=== PATIENT | female | born 1955 | race American Indian/Alaskan Native ===

== ENCOUNTER 2016-10-26 09:35 | Emergency (ER) | payer BC ==
[2016-10-26 09:54] VITALS: BP 137/79
--- NOTE | 2016-10-26 10:30 | Emergency Department Report ---
- General Chief Complaint: Sore Throat Stated Complaint: SORE THROAT /BOTH EYES POSS PINK EYE Time Seen by Provider: 10/26/16 10:03 Source: patient Mode of arrival: Ambulatory Limitations: No Limitations - History of Present Illness MD Complaint: cough, sore throat, nasal congestion, sinus pain, other (eye redness and drainage) -: Gradual (days; pt is a public policy manager) Quality: dull Consistency: constant Improves With: nothing Worsens With: nothing Context: sick contacts Associated Symptoms: headache, rhinorrhea, nasal congestion, sore throat, cough (smoker). denies: denies other symptoms, fever, chills, myalgias, diaphoresis, stiff neck, chest pain, shortness of breath, abdominal pain, nausea, vomiting, diarrhea, dysuria, rash, confusion, right sweats, weight loss, epistaxis, hoarseness, ear pain Treatments Prior to Arrival: none - Related Data Previous Rx's Medication Instructions Recorded Last Taken Type Cefdinir 300 mg PO BID #20 capsule 10/26/16 Unknown Rx Fluticasone [Flonase] 1 spray NS QDAY #1 bottle 10/26/16 Unknown Rx Polymyxin B Sulf/Trimethoprim 2 drop OP QID #1 bottle 10/26/16 Unknown Rx [Polytrim Eye Drops [id number]/0.1%] methylPREDNISolone [Medrol] 4 mg PO DAILY #1 tab.ds.pk 10/26/16 Unknown Rx Allergies Allergy/AdvReac Type Severity Reaction Status Date / Time No Known Allergies Allergy Verified 10/26/16 09:48 ED Review of Systems ROS: Stated complaint: SORE THROAT /BOTH EYES POSS PINK EYE Other details as noted in HPI Comment: All other systems reviewed and negative Constitutional: no symptoms reported, see HPI. denies: chills, diaphoresis, fever, malaise, weakness Eyes: as per HPI, eye discharge. denies: eye pain, vision change ENT: as per HPI, ear pain (full), throat pain, congestion (sinus). denies: dental pain, hearing loss, epistaxis Respiratory: no symptoms reported, see HPI, cough (smoker). denies: orthopnea, shortness of breath, SOB with exertion, SOB at rest, stridor, wheezing Cardiovascular: as per HPI. denies: chest pain, palpitations, dyspnea on exertion, orthopnea Endocrine: no symptoms reported, see HPI. denies: excessive sweating, flushing , intolerance to cold, intolerance to heat Gastrointestinal: as per HPI. denies: abdominal pain, nausea, vomiting Genitourinary: as per HPI. denies: urgency, dysuria ED Past Medical Hx - Past Medical History Hx Arthritis: Yes Additional medical history: cig smoker .5 ppd - Surgical History Additional Surgical History: tubal ligation. hysterectomy - Family History Family history: no significant - Social History Smoking Status: Current Every Day Smoker Substance Use Type: None - Medications Home Medications: Home Medications Medication Instructions Recorded Confirmed Last Taken Type Cefdinir 300 mg PO BID #20 capsule 10/26/16 Unknown Rx Fluticasone [Flonase] 1 spray NS QDAY #1 bottle 10/26/16 Unknown Rx Polymyxin B Sulf/Trimethoprim 2 drop OP QID #1 bottle 10/26/16 Unknown Rx [Polytrim Eye Drops [id number]/0.1%] methylPREDNISolone [Medrol] 4 mg PO DAILY #1 tab.ds.pk 10/26/16 Unknown Rx ED Physical Exam - General Limitations: No Limitations General appearance: alert, in no apparent distress - Head Head exam: Present: atraumatic - Eye Eye exam: Present: normal appearance Pupils: Present: normal accommodation - ENT ENT exam: Present: normal exam, mucous membranes moist - Neck Neck exam: Present: normal inspection. Absent: tenderness, meningismus - Respiratory Respiratory exam: Present: normal lung sounds bilaterally, other (bronchial smokers cough). Absent: respiratory distress, wheezes, rales, rhonchi, stridor , chest wall tenderness, accessory muscle use, decreased breath sounds, prolonged expiratory - Cardiovascular Cardiovascular Exam: Present: regular rate, normal rhythm - GI/Abdominal GI/Abdominal exam: Present: soft - Rectal Rectal exam: Present: deferred - Extremities Exam Extremities exam: Present: normal inspection, full ROM, normal capillary refill. Absent: tenderness, pedal edema, joint swelling, calf tenderness - Back Exam Back exam: Present: normal inspection, full ROM. Absent: tenderness, CVA tenderness (R) - Neurological Exam Neurological exam: Present: alert, altered, oriented X3, CN II-XII intact - Psychiatric Psychiatric exam: Present: normal affect, normal mood. Absent: depressed, agitated - Skin Skin exam: Present: warm, dry, intact, normal color. Absent: rash ED Course Vital Signs 10/26/16 09:51 Temperature 98.4 F Pulse Rate 86 Respiratory 17 Rate Blood Pressure 137/79 O2 Sat by Pulse 100 Oximetry - Reevaluation(s) Reevaluation #1: 10/26/16 10:28 non ill appearing. no fever. non septic appearing female smoker matting of eyes this am w s/s sinus infection/drainage cough non productive- smoker discussed smoking cessation requesting work note ED Medical Decision Making - Medical Decision Making non ill appearing no fever CREDIT ASSISTANT upper resp s/s smoker - Differential Diagnosis upper v lower resp infection Critical care attestation.: If time is entered above; I have spent that time in minutes in the direct care of this critically ill patient, excluding procedure time. ED Disposition Clinical Impression: Upper respiratory infection, Sinusitis, Conjunctivitis, Smoker Disposition: - TO HOME OR SELFCARE Is pt being admited?: No Does the pt Need Aspirin: No Condition: Stable Instructions: How to Stop Smoking (ED), Sinusitis (ED), Conjunctivitis (ED) Additional Instructions: try to eliminate cig smoking meds as ordered good handwashing at work follow up with pcp Prescriptions: Cefdinir 300 mg PO BID #20 capsule Fluticasone [Flonase] 1 spray NS QDAY #1 bottle methylPREDNISolone [Medrol] 4 mg PO DAILY #1 tab.ds.pk Polymyxin B Sulf/Trimethoprim [Polytrim Eye Drops [id number]/0.1%] 2 drop OP QID #1 bottle Referrals: PRIMARY CARE, [Primary Care Provider] - 3-5 Days Forms: Work/School Release Form(ED) Time of Disposition: 10:31
== END 2016-10-26 10:45 | disposition home or self-care (01) ==
LOC: ED 09:35
DX: J06.9 Acute upper respiratory infection, unspecified (principal); J32.9 Chronic sinusitis, unspecified; H10.9 Unspecified conjunctivitis; F17.200 Nicotine dependence, unspecified, uncomplicated

== ENCOUNTER 2017-05-22 21:31 | Emergency (ER) | payer BC ==
[2017-05-22 23:51] VITALS: BP 140/92
== END 2017-05-23 08:23 ==
LOC: ED 21:31
DX: R50.9 Fever, unspecified (principal); Z53.21 Procedure and treatment not carried out due to patient leaving prior to being seen by health care provider

== ENCOUNTER 2018-06-08 07:50 | Emergency (ER) | payer BC ==
[2018-06-08 08:00] VITALS: BP 174/88
--- NOTE | 2018-06-08 08:19 | Emergency Department Report ---
ED Back Pain/Injury HPI - General Chief Complaint: Extremity Problem,Nontraumatic Stated Complaint: LFT LEG WEAK/NERVE PAIN Time Seen by Provider: 06/08/18 08:03 Source: patient Limitations: No Limitations - History of Present Illness Initial Comments: Patient is a pleasant 62-year-old female who comes to the ER today complaining of back pain and left and right lower extremity nerve pain. She described this as weakness to the triage nurse that she says not wait she states this is her usual sciatica pain. She states that she has dealt with this for years. She also has cold sensation to bottom of feet. and tingling of left side head (not face). No cp, no sob, no abd pain, no headache, no problem with vision. Patient went to the urgent care and diagnosed with sciatica and was given Flexeril Motrin and prednisone but patient states this is not helping and she's had TO CALL OFF work several times. Patient was referred to a neurologist and she has an appointment on the of this month. Patient is changing her primary care to Dr. Larson. She denies incontinence dysuria or frequency. She denies saddle paresthesias. Patient denies fever. She denies the pain waking her from sleep. She has had no weight loss. Patient is ambulatory, nontoxic and afebrile. Past medical history none Daily medications none Past surgical history hysterectomy in 2002 MD Complaint: back pain -: Gradual, days(s) Similar Symptoms Previously: Yes Place: home Radiation: left leg, right leg Severity: mild Quality: burning Consistency: intermittent Improves With: none Worsens With: none Associated Symptoms: other (FEET FEEL COLD). denies: denies other symptoms, confusion, weakness, chest pain, numbness, difficulty walking, cough, difficulty urinating, diaphoresis, incontinence, fever/chills, constipation, headaches, abdominal pain, loss of appetite, malaise, nausea/vomiting, rash, seizure, shortness of breath, syncope - Related Data Previous Rx's Medication Instructions Recorded Last Taken Type Cyclobenzaprine [Flexeril] 10 mg PO TID PRN #10 tablet 06/08/18 Unknown Rx Allergies Allergy/AdvReac Type Severity Reaction Status Date / Time No Known Allergies Allergy Verified 10/26/16 09:48 ED Review of Systems ROS: Stated complaint: LFT LEG WEAK/NERVE PAIN Other details as noted in HPI Comment: All other systems reviewed and negative Constitutional: denies: see HPI, chills, fever Eyes: denies: eye pain ENT: denies: ear pain, throat pain Respiratory: denies: cough, orthopnea Cardiovascular: denies: chest pain, palpitations, dyspnea on exertion Endocrine: denies: excessive sweating, flushing, intolerance to cold, intolerance to heat Gastrointestinal: denies: abdominal pain, nausea, vomiting Genitourinary: denies: urgency, dysuria Musculoskeletal: as per HPI, back pain, other (USUAL NERVE PAIN W SCIATICA) Skin: denies: rash, lesions Neurological: as per HPI, paresthesias. denies: headache, weakness, numbness, confusion, abnormal gait, vertigo Psychiatric: denies: anxiety Hematological/Lymphatic: denies: easy bleeding ED Past Medical Hx - Past Medical History cig smoker .5 ppd; CHRONIC BACK PAIN Family history: other (MOM DEC AT 97; DAD ? CAUSE) - Social History Smoking Status: Current Every Day Smoker ED Back Pain Physical Exam - Exam General: Vital signs noted. No distress. Alert and acting appropriately. Alert oriented no cranial nerve def ambulatory S1S2 lungs clear to auscultation abd soft non tender no cp no sob no abd pain no fever Back/Abdomen: No Abdominal Tenderness, No Perithoracic Tenderness, No Perilumbar Tenderness, No Sacroiliac Tenderness, No Flank Tenderness, No Straight Leg Raise Pain Neuro: Yes Normal Sensation, Yes Normal DTR's, Yes Normal Gait, No Motor Weakness ED Course Vital Signs 06/08/18 07:57 Temperature 97.7 F Pulse Rate 78 Respiratory 20 Rate Blood Pressure 174/88 O2 Sat by Pulse 100 Oximetry ED Medical Decision Making - Medical Decision Making vital signs are stable. Patient is afebrile.She denies signs and symptoms of cauda equina. She denies signs and symptoms of a urinary tract infection. There is no focal neuro deficit on exam. no cp. no sob. no headache. no problems with vision. Patient has a known history of sciatica which patient is attributing her lower extremity complaints to. She does have a neuro appointment already scheduled on 06-23 of this month. There are no life threatening causes of her symptoms identified. Pt requesting work note and flexeril refill. Will dc home with follow up established and instructions when to return to ED blood sugar 87 Critical care attestation.: If time is entered above; I have spent that time in minutes in the direct care of this critically ill patient, excluding procedure time. ED Disposition Clinical Impression: Sciatica Disposition: DC- TO HOME OR SELFCARE Is pt being admited?: No Does the pt Need Aspirin: No Condition: Stable Additional Instructions: follow up with neuro as scheduled call Dr Larson for appointment referral below meds as instructed diet and activity as tolerated Prescriptions: Cyclobenzaprine [Flexeril] 10 mg PO TID PRN #10 tablet PRN Reason: Muscle Spasm Referrals: PRIMARY CAREMD [Referring] - 3-5 Days SADI LARSON MD [Referring] - 3-5 Days Forms: Work/School Release Form(ED) Time of Disposition: 08:37
[2018-06-08] MEDS ORDERED: DECADRON IM ONE (08:28)
[2018-06-08] MEDS ORDERED: TORADOL IM ONE (08:28)
== END 2018-06-08 08:45 | disposition home or self-care (01) ==
LOC: ED 07:50
DX: M54.32 Sciatica, left side (principal); M54.31 Sciatica, right side; F17.200 Nicotine dependence, unspecified, uncomplicated
CPT/HCPCS: 82962; 96372; 99282; J1100; J1885

== ENCOUNTER 2018-12-04 15:33 | Emergency (ER) | payer BC ==
[2018-12-04 16:09] VITALS: BP 141/85
[2018-12-04] MEDS ORDERED: DECADRON IM ONE (16:37)
--- NOTE | 2018-12-04 16:37 | Emergency Department Report ---
ED Rash HPI - HPI Chief Complaint: Skin Rash Stated Complaint: RT EAR RASH Time Seen by Provider: 12/04/18 15:40 ED Review of Systems ROS: Stated complaint: RT EAR RASH Other details as noted in HPI Comment: All other systems reviewed and negative ED Past Medical Hx - Past Medical History Previous Medical History?: Yes Hx Arthritis: Yes Additional medical history: cig smoker .5 ppd; CHRONIC BACK PAIN - Surgical History Past Surgical History?: Yes Additional Surgical History: tubal ligation. hysterectomy - Social History Smoking Status: Current Every Day Smoker Substance Use Type: None - Medications Home Medications: Home Medications Medication Instructions Recorded Confirmed Last Taken Type cephALEXin [Keflex] 500 mg PO Q12HR #20 cap 12/04/18 Unknown Rx predniSONE [Deltasone] 20 mg PO DAILY #5 tablet 12/04/18 Unknown Rx Rash Exam - Exam General: Vital signs noted. No distress. Alert and acting appropriately. HEENT: No Periorbital Edema, No Conjuctival Injection, No Chemosis Lungs: Yes Good Air Exchange, No Wheezes, No Ronchi, No Stridor, No Cough Heart: Yes Regular Skin: Yes Weeping, Yes Tenderness, Yes Erythema, Yes Edema, Yes Encrustations, No Urticarial Rash, No Maculopapular Rash, No Morbilliform rash, No Bulla(e), No Excoriations Other: Positive: Abdomen Normal, Neurologic Normal, Musculoskeletal Normal ED Course Vital Signs 12/04/18 16:08 Temperature 98.5 F Pulse Rate 81 Respiratory 16 Rate Blood Pressure 141/85 O2 Sat by Pulse 98 Oximetry ED Medical Decision Making - Medical Decision Making Vital Signs 12/04/18 16:08 Temperature 98.5 F Pulse Rate 81 Respiratory 16 Rate Blood Pressure 141/85 O2 Sat by Pulse 98 Oximetry Critical care attestation.: If time is entered above; I have spent that time in minutes in the direct care of this critically ill patient, excluding procedure time. ED Disposition Clinical Impression: Rash Disposition: DC-01 TO HOME OR SELFCARE Is pt being admited?: No Does the pt Need Aspirin: No Condition: Stable Instructions: Acute Rash (ED) Additional Instructions: MEDS ORDERED TODAY CONTINUE HOME GABAPEN. KEEP AREA CLEAN WASH WITH SOAP AND WATER NO OINTMENTS!! NO NEOSPORIN MOTRIN OR TYLENOL CAN BE USED FOR PAIN FOLLOW UP WITH DERM MD NEXT WEEK REFERRAL BELOW TRY NOT TO TOUCH THE AREA Referrals: YOLANDA MADRIGAL MD [Referring] - 3-5 Days Time of Disposition: 16:33
== END 2018-12-04 16:54 | disposition home or self-care (01) ==
LOC: ED 15:33
DX: R21 Rash and other nonspecific skin eruption (principal); M19.90 Unspecified osteoarthritis, unspecified site; G89.29 Other chronic pain; F17.200 Nicotine dependence, unspecified, uncomplicated; Z98.51 Tubal ligation status; Z90.710 Acquired absence of both cervix and uterus
CPT/HCPCS: 96372; 99282; J1100